=== PATIENT | male | born 1985 | race Caucasian/White ===

== ENCOUNTER → 2016-11-17 | Outpatient (CLI) | payer BC ==
[~2016-11-17] MED LIST: AMBIEN CR 12.12.5 MG PO; AMITRIPTYLINE H25 M1 PO; AMITRIPTYLINE H50 M1 PO; AMOXICILLIN 8751 TAB PO; CYTOMEL 2525 MCG/TAB PO; DOXYCYCLINE 10100 MG PO; LAMICTAL 100MG100 MG PO; MAXALT10 MG PO; MIDRIN; MINIPRESS 1M1 MG/CAP PO; NEURONTIN800 MG/TAB PO; NORTRIPTYLINE H50 MG PO; PHENERGAN 25 TA25 MG PO; PRAVACHOL 20MG20 MG PO; PRAVACHOL 40MG40 MG PO; PROAIR HFA0.09 MG/AC IH; RANITIDINE HYD150 MG PO; RELPAX 40MG TAB40 MG PO; RISPERDAL 1M1 MG/TAB PO; SINGULAIR 110 MG/TAB PO; TRICOR145 MG PO; TYLENOL #3 301 UDTAB PO; VALIUM 2MG T2 MG/TAB PO; ZANAFLEX2 MG PO; ZOFRAN8 MG PO; ZOLOFT 50MG50 MG PO; ZOLOFT25 MG PO
== END ==
LOC: BHSO 14:57
DX: F31.81 Bipolar II disorder (principal)

== ENCOUNTER → 2017-01-15 | Outpatient (CLI) | payer BC | LOC: BHSO 14:16 | DX: F31.74 Bipolar disorder, in full remission, most recent episode manic (principal) ==

== ENCOUNTER → 2017-01-19 | Outpatient (CLI) | payer BC | LOC: COL.CARD 12:44 | DX: G25.3 Myoclonus (principal) ==

== ENCOUNTER → 2017-02-24 | Outpatient (CLI) | payer BC | LOC: BHSO 14:14 | DX: F31.73 Bipolar disorder, in partial remission, most recent episode manic (principal) ==

== ENCOUNTER → 2017-04-13 | Outpatient (CLI) | payer BC | LOC: BHSO 11:13 | DX: F31.73 Bipolar disorder, in partial remission, most recent episode manic (principal) ==

== ENCOUNTER → 2017-06-22 | Outpatient (CLI) | payer BC | LOC: BHSO 11:38 | DX: F31.73 Bipolar disorder, in partial remission, most recent episode manic (principal) ==

== ENCOUNTER → 2017-09-21 | Outpatient (CLI) | payer BC | LOC: BHSO 10:52 | DX: F31.73 Bipolar disorder, in partial remission, most recent episode manic (principal) ==

== ENCOUNTER → 2017-12-21 | Outpatient (CLI) | payer BC ==
[~2017-12-21] MED LIST changes: +BUSPAR5 MG PO; +LAMICTAL200 MG PO; +NAMENDA5 MG PO; +REXULTI1 MG PO; +SEROQUEL 200MG200 MG PO; +TORADOL 10MG TA10 MG PO; +VALIUM 5MG T5 MG/TAB PO; +ZANAFLEX 4MG TAB4 MG PO; +ZONEGRAN50 MG PO
== END ==
LOC: BHSO 12:51
DX: F41.1 Generalized anxiety disorder (principal)
CPT/HCPCS: G0463

== ENCOUNTER 2018-01-03 14:47 | Inpatient (IN) | payer BC ==
[~2018-01-03] VITALS: Ht 175.3 cm; Wt 79.0 kg
[~2018-01-03 14:47] MED LIST changes: -BUSPAR5 MG PO; -LAMICTAL200 MG PO; -NAMENDA5 MG PO; -REXULTI1 MG PO; -SEROQUEL 200MG200 MG PO; -TORADOL 10MG TA10 MG PO; -VALIUM 5MG T5 MG/TAB PO; -ZANAFLEX 4MG TAB4 MG PO; -ZONEGRAN50 MG PO
[2018-01-03 16:53] LABS: BASO # 0.1 (0.0-0.2); BASO % 0.2 % (0.0-2.0); GRAN # 20.4 (1.4-6.5); GRAN % 92.8 % (42.2-75.2); HEMATOCRIT 50.3 % (42.0-52.0); HEMOGLOBIN 17.7 g/dl (13.5-18.0); LYMPH # 0.5 (1.2-3.4); MEAN CELL VOLUME 96 fl (80.0-100.0); MEAN CORPUSCULAR HEMOGLOBIN 34 pg (27.0-31.0); MEAN CORPUSCULAR HGB CONC 35 g/dl (33.0-37.0); MEAN PLATELET VOLUME 9.9 fl (7.4-10.4); MONO % 4.5 % (1.7-9.3); PLATELET COUNT 261 K/mm3 (130-400); RED BLOOD COUNT 5.25 M/mm3 (4.20-5.60)
[2018-01-03 17:06] LABS: ALBUMIN 5.3 gm/dL (3.5-5.0); BILIRUBIN,TOTAL 0.5 mg/dL (0.0-1.0); C-REACTIVE PROTEIN 2.9 mg/dL (0.0-0.9); CALCIUM 9.9 mg/dL (8.4-10.2); CREATININE, serum 0.86 mg/dL (0.66-1.25); POTASSIUM 4.6 mmol/L (3.4-5.0); TOTAL PROTEIN 8.2 gm/dL (6.4-8.2)
[2018-01-03 18:16] LABS: COLLECTION METHOD CLEAN CATCH
[2018-01-03 18:27] LABS: PH 6 (5-8); URINE APPEARANCE Clear; URINE BILIRUBIN Negative (NEGATIVE); URINE BLOOD Negative (NEGATIVE); URINE COLOR Yellow; URINE GLUCOSE Negative (NEGATIVE); URINE KETONE Negative (NEGATIVE); URINE LEUKOCYTE ESTERASE Negative (NEGATIVE); URINE NITRATE Negative (NEGATIVE); URINE PROTEIN(semi-quant) Negative (NEGATIVE)
[2018-01-03] MEDS ORDERED: AMITRIPTYLINE H25 M1 PO (18:39)
[2018-01-03] MEDS ORDERED: ZONEGRAN50 MG PO (18:39)
[2018-01-03] MEDS ORDERED: ZANAFLEX 4MG TAB4 MG PO (18:39)
[2018-01-03] MEDS ORDERED: LAMICTAL200 MG PO (18:46)
[2018-01-03] MEDS ORDERED: VALIUM 5MG T5 MG/TAB PO (18:47)
[2018-01-03] MEDS ORDERED: SEROQUEL 200MG200 MG PO (18:50)
[2018-01-03] MEDS ORDERED: NAMENDA5 MG PO (18:50)
[2018-01-03] MEDS ORDERED: TORADOL 10MG TA10 MG PO (18:52)
[2018-01-03 18:53] LABS: MUCOUS Present /lpf; SQUAMOUS EPITHELIAL 0-2 /hpf; URINE RBC None Seen /hpf
[2018-01-03] MEDS ORDERED: REXULTI1 MG PO (18:53)
[2018-01-03] MEDS ORDERED: BUSPAR5 MG PO (18:53)
[2018-01-03 20:12] VITALS: BP 106/56; PULSE 117; TEMP 98.3
[2018-01-03 20:18] VITALS: BP 106/56; PULSE 115; TEMP 98.5
[2018-01-03 23:21] VITALS: BP 104/61; PULSE 121; TEMP 98.1
[2018-01-04] VITALS (10 sets, daily range): BP systolic 97–132; BP diastolic 58–89; PULSE 110–143; TEMP 97.9–101.7
[2018-01-04 06:20] LABS: HEMATOCRIT 41.9 % (42.0-52.0); MEAN CELL VOLUME 96 fl (80.0-100.0); MEAN CORPUSCULAR HEMOGLOBIN 34 pg (27.0-31.0); MEAN CORPUSCULAR HGB CONC 35 g/dl (33.0-37.0); MEAN PLATELET VOLUME 9.9 fl (7.4-10.4); PLATELET COUNT 224 K/mm3 (130-400); RED BLOOD COUNT 4.37 M/mm3 (4.20-5.60); REDCELL DISTRIBUTION WIDTH-CV 12.4 % (11.5-14.5)
[2018-01-04 06:32] LABS: HEMOGLOBIN 14.7 g/dl (13.5-18.0)
[2018-01-04 06:43] LABS: CALCIUM 8.5 mg/dL (8.4-10.2); CREATININE, serum 0.82 mg/dL (0.66-1.25); MAGNESIUM 1.7 mg/dL (1.6-2.3); POTASSIUM 4.2 mmol/L (3.4-5.0)
[2018-01-04 08:05] LABS: BAND 5 % (0-10); LYMPHOCYTE 7 % (20.0-51.0); NEUTROPHILS 81 % (42.0-75.2); PLATELET ESTIMATE NORMAL (NORMAL)
[2018-01-04 08:46] LABS: PATHOLOGY DIFF REVIEW OK
[2018-01-05] VITALS (7 sets, daily range): BP systolic 100–131; BP diastolic 54–82; PULSE 113–137; TEMP 97.4–102.2
[2018-01-05 07:00] LABS: CALCIUM 8.7 mg/dL (8.4-10.2); CREATININE, serum 0.85 mg/dL (0.66-1.25); MAGNESIUM 1.7 mg/dL (1.6-2.3); POTASSIUM 3.8 mmol/L (3.4-5.0)
[2018-01-05 07:26] LABS: HEMATOCRIT 42.4 % (42.0-52.0); HEMOGLOBIN 14.4 g/dl (13.5-18.0); MEAN CELL VOLUME 98 fl (80.0-100.0); MEAN CORPUSCULAR HEMOGLOBIN 33 pg (27.0-31.0); MEAN CORPUSCULAR HGB CONC 34 g/dl (33.0-37.0); MEAN PLATELET VOLUME 10.4 fl (7.4-10.4); PLATELET COUNT 243 K/mm3 (130-400); RED BLOOD COUNT 4.34 M/mm3 (4.20-5.60); REDCELL DISTRIBUTION WIDTH-CV 12.7 % (11.5-14.5)
[2018-01-05 08:33] LABS: BAND 14 % (0-10); LYMPHOCYTE 8 % (20.0-51.0); METAMYELOCYTE 1 % (0-0); NEUTROPHILS 67 % (42.0-75.2); PLATELET ESTIMATE NORMAL (NORMAL)
[2018-01-06] VITALS (12 sets, daily range): BP systolic 111–139; BP diastolic 69–89; PULSE 81–120; TEMP 97.4–98.9
[2018-01-06 07:07] LABS: BASO % 0.1 % (0.0-2.0); EOS % 0.1 % (0-4.0); GRAN # 11.5 (1.4-6.5); HEMATOCRIT 38.1 % (42.0-52.0); HEMOGLOBIN 12.9 g/dl (13.5-18.0); LYMPH # 0.8 (1.2-3.4); LYMPH % 6.1 % (20.0-51.0); MEAN CELL VOLUME 98 fl (80.0-100.0); MEAN CORPUSCULAR HEMOGLOBIN 33 pg (27.0-31.0); MEAN CORPUSCULAR HGB CONC 34 g/dl (33.0-37.0); MEAN PLATELET VOLUME 10.4 fl (7.4-10.4); MONO # 1.4 (0.1-0.6); PLATELET COUNT 224 K/mm3 (130-400); RED BLOOD COUNT 3.88 M/mm3 (4.20-5.60); REDCELL DISTRIBUTION WIDTH-CV 12.7 % (11.5-14.5)
[2018-01-06 07:14] LABS: ALBUMIN 3.3 gm/dL (3.5-5.0); BILIRUBIN,TOTAL 0.4 mg/dL (0.0-1.0); CALCIUM 8.7 mg/dL (8.4-10.2); CREATININE, serum 0.72 mg/dL (0.66-1.25); POTASSIUM 3.7 mmol/L (3.4-5.0); TOTAL PROTEIN 5.9 gm/dL (6.4-8.2)
[2018-01-07 00:50] VITALS: BP 124/81; PULSE 105; TEMP 97.9
[2018-01-07 03:50] VITALS: BP 120/81; PULSE 110; TEMP 98.1
[2018-01-07 06:31] LABS: BASO % 0.1 % (0.0-2.0); EOS % 0.1 % (0-4.0); GRAN # 5.6 (1.4-6.5); GRAN % 75.1 % (42.2-75.2); LYMPH # 1.1 (1.2-3.4); LYMPH % 14.6 % (20.0-51.0); MEAN CELL VOLUME 97 fl (80.0-100.0); MEAN CORPUSCULAR HGB CONC 34 g/dl (33.0-37.0); MEAN PLATELET VOLUME 10.1 fl (7.4-10.4); MONO # 0.7 (0.1-0.6); MONO % 9.7 % (1.7-9.3); PLATELET COUNT 234 K/mm3 (130-400); RED BLOOD COUNT 3.44 M/mm3 (4.20-5.60); REDCELL DISTRIBUTION WIDTH-CV 12.5 % (11.5-14.5)
[2018-01-07 06:36] LABS: HEMATOCRIT 33.4 % (42.0-52.0); HEMOGLOBIN 11.4 g/dl (13.5-18.0); MEAN CORPUSCULAR HEMOGLOBIN 33 pg (27.0-31.0)
[2018-01-07 06:41] LABS: ANION GAP 5 mmol/L (7-16); CALCIUM 8.5 mg/dL (8.4-10.2); CARBON DIOXIDE 24 mmol/L (22-30); CHLORIDE 112 mmol/L (98-107); GLUCOSE 107 mg/dL (74-106); POTASSIUM 3.3 mmol/L (3.4-5.0); SODIUM 140 mmol/L (137-145)
[2018-01-07 06:44] LABS: BLOOD UREA NITROGEN < 2 mg/dL (9-20)
[2018-01-07 07:30] VITALS: BP 108/64; PULSE 87; TEMP 97.6
[2018-01-07] MEDS ORDERED: ASPIRIN E.C. 8181 MG PO (09:19)
[2018-01-07] MEDS ORDERED: CIPRO 500MG TA500 MG PO (09:26)
[2018-01-07] MEDS ORDERED: FLAGYL500 MG PO (09:26)
[2018-01-07] MEDS ORDERED: ULTRAM 50MG TAB50 MG PO (09:27)
[2018-01-07 11:43] VITALS: BP 120/78; PULSE 86; TEMP 98.9
== END 2018-01-07 13:38 | disposition home or self-care (01) | DRG 871 ==
LOC: COL.ER 14:47 → MEDICAL 18:33
PROVIDERS: Family Medicine; Internal Medicine Gastroenterology; Nurse Practitioner; Nurse Practitioner Family
PROC: 0DBL8ZX Excision of Transverse Colon, Via Natural or Artificial Opening Endoscopic, Diagnostic (ICD-10-PCS; principal; 2018-01-06 15:00)
DX: A41.9 Sepsis, unspecified organism (principal); K55.039 Acute (reversible) ischemia of large intestine, extent unspecified; A09 Infectious gastroenteritis and colitis, unspecified; K58.1 Irritable bowel syndrome with constipation; F31.9 Bipolar disorder, unspecified; Z23 Encounter for immunization; G43.909 Migraine, unspecified, not intractable, without status migrainosus
CPT/HCPCS: OP; 99222-AI; 99232-AI; 99233-AI; 99239; C1751; G0378; J0744; J1170; J1644; J1720; J2405; J2543; J2550; J2704; J7030; J7120; Q9967

== ENCOUNTER → 2018-02-16 | Outpatient (CLI) | payer BC ==
[~2018-02-16] MED LIST changes: +ASPIRIN E.C. 8181 MG PO; +BUSPAR5 MG PO; +CIPRO 500MG TA500 MG PO; +FLAGYL500 MG PO; +LAMICTAL200 MG PO; +NAMENDA5 MG PO; +REXULTI1 MG PO; +SEROQUEL 200MG200 MG PO; +TORADOL 10MG TA10 MG PO; +ULTRAM 50MG TAB50 MG PO; +VALIUM 5MG T5 MG/TAB PO; +ZANAFLEX 4MG TAB4 MG PO; +ZONEGRAN50 MG PO
== END ==
LOC: BHSO 13:06
DX: F31.81 Bipolar II disorder (principal)
CPT/HCPCS: G0463

== ENCOUNTER → 2018-04-19 | Outpatient (CLI) | payer BC | LOC: BHSO 09:47 | DX: F31.81 Bipolar II disorder (principal) | CPT/HCPCS: G0463 ==

== ENCOUNTER → 2018-04-25 | Outpatient (CLI) | payer BC | LOC: MHCPAIN 14:25 | DX: G89.29 Other chronic pain (principal); M54.12 Radiculopathy, cervical region; M47.812 Spondylosis without myelopathy or radiculopathy, cervical region; R51 Headache; M54.81 Occipital neuralgia | CPT/HCPCS: G0463 ==

== ENCOUNTER → 2018-05-12 | Outpatient (CLI) | payer BC | LOC: MHCPAIN 14:04 | DX: M50.31 Other cervical disc degeneration, high cervical region (principal); M25.78 Osteophyte, vertebrae; M48.02 Spinal stenosis, cervical region | CPT/HCPCS: J1100; Q9967 ==

== ENCOUNTER → 2018-05-27 | Outpatient (CLI) | payer BC | LOC: MHCPAIN 07:57 | DX: G89.29 Other chronic pain (principal); M50.90 Cervical disc disorder, unspecified, unspecified cervical region; M54.12 Radiculopathy, cervical region; M54.81 Occipital neuralgia; R51 Headache | CPT/HCPCS: G0463 ==

== ENCOUNTER → 2018-06-08 | Outpatient (CLI) | payer BC | LOC: MHCPAIN 12:41 | DX: M54.81 Occipital neuralgia (principal) | CPT/HCPCS: J1100 ==

== ENCOUNTER → 2018-07-04 | Outpatient (CLI) | payer BC | LOC: BHSO 14:26 | DX: F31.81 Bipolar II disorder (principal) | CPT/HCPCS: G0463 ==

== ENCOUNTER → 2018-07-15 | Outpatient (CLI) | payer BC | LOC: MHCPAIN 10:52 | DX: G89.29 Other chronic pain (principal); M50.90 Cervical disc disorder, unspecified, unspecified cervical region; M54.12 Radiculopathy, cervical region; M54.81 Occipital neuralgia; R51 Headache | CPT/HCPCS: G0463 ==

== ENCOUNTER → 2018-08-01 | Outpatient (CLI) | payer BC | LOC: MHCPAIN 12:25 | DX: M50.90 Cervical disc disorder, unspecified, unspecified cervical region (principal); M54.12 Radiculopathy, cervical region; R51 Headache ==

== ENCOUNTER → 2018-09-06 | Outpatient (CLI) | payer BC | LOC: BHSO 14:48 | DX: F31.81 Bipolar II disorder (principal) | CPT/HCPCS: G0463 ==

== ENCOUNTER → 2018-11-18 | Outpatient (CLI) | payer BC | LOC: BHSO 09:20 | DX: F31.75 Bipolar disorder, in partial remission, most recent episode depressed (principal) | CPT/HCPCS: G0463 ==

== ENCOUNTER → 2019-01-18 | Outpatient (CLI) | payer BC | LOC: BHSO 08:10 | DX: F43.10 Post-traumatic stress disorder, unspecified (principal) | CPT/HCPCS: G0463 ==

== ENCOUNTER → 2019-03-13 | Outpatient (CLI) | payer BC | LOC: BHSO 13:56 | DX: F43.10 Post-traumatic stress disorder, unspecified (principal) | CPT/HCPCS: G0463 ==

== ENCOUNTER 2019-04-27 09:48 | Emergency (ER) | payer BC ==
[~2019-04-27] VITALS: Ht 175.3 cm; Wt 103.2 kg
[2019-04-27 09:52] VITALS: TEMP 96.9
[2019-04-27] MEDS ORDERED: PHENERGAN 25 TA25 MG PO (10:00)
[2019-04-27] MEDS ORDERED: PRAVACHOL 20MG20 MG PO (10:02)
[2019-04-27] MEDS ORDERED: IMITREX 6M6 MG/0.5 M SQ (10:03)
[2019-04-27] MEDS ORDERED: AJOVY225 MG/1.5 SQ (10:03)
[2019-04-27] MEDS ORDERED: DEPAKOTE ER 50500 MG PO (10:04)
[2019-04-27] MEDS ORDERED: TORADOL 10MG TA10 MG PO (10:04)
[2019-04-27 12:28] VITALS: BP 115/89; PULSE 88
== END 2019-04-27 12:33 | disposition home or self-care (01) ==
LOC: COL.ER 09:48
DX: G43.909 Migraine, unspecified, not intractable, without status migrainosus (principal); F31.9 Bipolar disorder, unspecified; M79.7 Fibromyalgia; F41.9 Anxiety disorder, unspecified; Z90.89 Acquired absence of other organs; Z79.82 Long term (current) use of aspirin
CPT/HCPCS: J1630

== ENCOUNTER 2019-12-09 12:21 | Emergency (ER) | payer BC ==
[~2019-12-09] VITALS: Ht 175.3 cm; Wt 96.8 kg
[~2019-12-09 12:21] MED LIST changes: +AJOVY225 MG/1.5 SQ; +DEPAKOTE ER 50500 MG PO; +IMITREX 6M6 MG/0.5 M SQ
[2019-12-09 12:28] VITALS: BP 112/59; TEMP 97
[2019-12-09 15:15] VITALS: PULSE 72
== END 2019-12-09 15:15 | disposition home or self-care (01) ==
LOC: COL.ER 12:21
DX: G43.909 Migraine, unspecified, not intractable, without status migrainosus (principal); Z79.82 Long term (current) use of aspirin